=== PATIENT | male | born 1960 | race Caucasian/White ===

== ENCOUNTER → 2020-04-10 12:10 | Outpatient (BNVA) | payer MEDICARE, MEDICAID, SELFPAY | PROVIDERS: Family Provider Family Medicine; PCP Family Medicine; Visit Provider Surgery | DX: L98.9 Disorder of the skin and subcutaneous tissue, unspecified (principal) | CPT/HCPCS: 88305 ==

== ENCOUNTER → 2021-06-12 15:21 | Outpatient (BNVA) | payer MEDICARE, MEDICAID, SELFPAY | PROVIDERS: Family Provider Family Medicine; PCP Family Medicine; Visit Provider Nurse Practitioner Family | DX: R11.2 Nausea with vomiting, unspecified (principal) | CPT/HCPCS: 87635 ==

== ENCOUNTER 2021-11-07 10:59 | Outpatient (CLI) | payer MEDICARE, MEDICAID, SELFPAY ==
[2021-11-07 12:11] VITALS: BP 139/88; PULSE 60; RESP 16; TEMP 36.6; O2SAT 97; BMI 27.8
[2021-11-07 12:53] VITALS: BP 155/89; PULSE 65; RESP 16; TEMP 36.7; O2SAT 98
[2021-11-07 13:53] VITALS: BP 158/89; PULSE 67; RESP 17; TEMP 36.5; O2SAT 99
== END 2021-11-07 11:00 | disposition home or self-care (01) ==
PROVIDERS: PCP Family Medicine; Visit Provider Nurse Practitioner Family
DX: U07.1 COVID-19 (principal)
CPT/HCPCS: 96365

== ENCOUNTER → 2022-05-20 17:11 | Outpatient (BNVA) | payer MEDICARE, MEDICAID, SELFPAY | PROVIDERS: PCP Family Medicine; Visit Provider Nurse Practitioner Family | DX: R10.9 Unspecified abdominal pain (principal); R19.8 Other specified symptoms and signs involving the digestive system and abdomen | CPT/HCPCS: 80053; 81000; 81003; 85025; 86677 ==